=== PATIENT | male | born 1970 | race Caucasian/White ===

== ENCOUNTER 2025-11-14 13:19 | Inpatient (IN) | payer MEDICAID ==
[~2025-11-14] VITALS: Ht 172.7 cm; Wt 71.2 kg
[~2025-11-14 13:19] MED LIST: ENOX60DI SQ; FERR325T27 PO; FURO20TA4 PO
[2025-11-14 15:00] LABS: PLATELET COUNT (AUTO) 88 K/uL (150-450); RED BLOOD CELL COUNT(AUTO) 4.10 MIL/uL (4.5-6.0); RED CELL DISTRIBUTION WIDTH 13.0 % (11.5-15.0); WHITE BLOOD COUNT (AUTO) 7.5 K/uL (4.3-11.0)
[2025-11-14 15:10] LABS: CALCIUM, SERUM 8.3 mg/dL (8.5-10.1); CREATININE 1.6 mg/dL (0.6-1.3); SODIUM SERUM 138 mmol/L (136-145); UREA NITROGEN, BLOOD 29 mg/dL (7-18)
[2025-11-14 15:27] LABS: ASPARTATE AMINOTRANSFERASE 21 U/L (15-37); TOTAL PROTEIN, SERUM 7.0 g/dL (6.4-8.2)
[2025-11-14 15:32] LABS: ALCOHOL, BLOOD < 3 mg/dL (0-10)
[2025-11-14] MEDS: IV NS 0.9% 1,000 ML BAG IV ONE (15:35)
[2025-11-14] MEDS ORDERED: LORAZEPAM INJ 2 MG/ML VIAL ONE (17:14)
[2025-11-14] MEDS: LORAZEPAM INJ 2 MG/ML VIAL IV ONE (17:23)
[2025-11-14 17:29] LABS: LYMPHOCYTES % (MANUAL) 10 % (16-48); MONOCYTES % (MANUAL) 3 % (0-11.0); NEUTROPHILS % (MANUAL) 87 (42-76); PLATELET ESTIMATE ADEQUATE
[2025-11-14] MEDS: LEVETIRACETAM SOL (5 ML) 100 MG/ML UDC PO SCH (17:30)
[2025-11-14] MEDS ORDERED: LEVETIRACETAM SOL (5 ML) 100 MG/ML UDC ONE (17:36)
[2025-11-14] MEDS ORDERED: ONDANSETRON HCL/PF 4 MG/2 ML VIAL ONE (17:42)
[2025-11-14] MEDS: ONDANSETRON HCL/PF - ER 4 MG/2 ML VIAL IV ONE (17:54)
[2025-11-14] MEDS: LEVETIRACETAM (500MG) 1,000 MG in IV NS 0.9% 90 ML IV SCH (17:54)
[2025-11-14 20:00] VITALS: BP 147/88; TEMP 97.7; O2SAT 98
[2025-11-14] MEDS ORDERED: hydrALAZINE HCL IV 20 MG VIAL IV PRN (20:30)
[2025-11-14] MEDS ORDERED: LORAZEPAM INJ 2 MG/ML VIAL IV PRN (20:30)
[2025-11-14] MEDS ORDERED: ONDANSETRON HCL/PF 4 MG/2 ML VIAL IVP PRN (20:30)
[2025-11-14] MEDS ORDERED: MORPHINE SULFATE INJ 2 MG/ML DISP.SYRIN IV PRN (20:30)
[2025-11-14] MEDS: IV NS 0.9% 1,000 ML IV SCH (20:51)
[2025-11-14] MEDS ORDERED: HEPARIN SODIUM, PORCINE 5000 UNITS/1 ML VIAL SQ SCH (21:00)
[2025-11-14] MEDS ORDERED: Calcium Gluconate 0.465 MEQ/ML VIAL IV ONE (23:21)
[2025-11-14] MEDS: Calcium Gluconate 1GM/10ML 9.3 MEQ in IV NS 0.9% 100 ML IV ONE (23:31)
[2025-11-15] VITALS: BP 133/91; TEMP 97.8; O2SAT 98
[2025-11-15 07:11] LABS: PLATELET COUNT (AUTO) 91 K/uL (150-450); RED BLOOD CELL COUNT(AUTO) 4.12 MIL/uL (4.5-6.0); RED CELL DISTRIBUTION WIDTH 12.8 % (11.5-15.0); WHITE BLOOD COUNT (AUTO) 6.9 K/uL (4.3-11.0)
[2025-11-15 07:24] LABS: ASPARTATE AMINOTRANSFERASE 23.0 U/L (15-37); CALCIUM, SERUM 8.4 mg/dL (8.5-10.1); CREATININE 1.3 mg/dL (0.6-1.3); PHOSPHORUS 3.1 mg/dL (2.5-4.9); SODIUM SERUM 137.0 mmol/L (136-145); TOTAL PROTEIN, SERUM 6.6 g/dL (6.4-8.2); UREA NITROGEN, BLOOD 20.0 mg/dL (7-18)
[2025-11-15 08:15] LABS: BASOPHILS % (MANUAL) 0 % (0.0-2.0); EOSINOPHILS % (MANUAL) 0 % (0-4); LYMPHOCYTES % (MANUAL) 12 % (16-48); MONOCYTES % (MANUAL) 7 % (0-11.0); NEUTROPHILS % (MANUAL) 81 (42-76); PLATELET ESTIMATE DECREASED
[2025-11-15] MEDS: LEVETIRACETAM (250 MG) 250 MG TABLET PO SCH (08:48)
[2025-11-15] MEDS: ACETAMINOPHEN 325 MG TABLET PO PRN (12:50)
[2025-11-15] MEDS: IV NS 0.9% 1,000 ML IV PRN (14:51)
[2025-11-15 17:07] LABS: APPEARANCE,URINE CLEAR (CLEAR); BLOOD, URINE TRACE-INTA Ery/uL (NEGATIVE); LEUKOCYTE ESTERASE ,URINE NEGATIVE (NEGATIVE); NITRITE, URINE NEGATIVE (NEGATIVE); UGLUCOSE NEGATIVE (NEGATIVE)
[2025-11-15 17:09] LABS: ADD URINE CULTURE NO; SQUAMOUS EPITHELIAL CELL,UR None Seen /HPF (None Seen)
[2025-11-15 17:32] LABS: EOSINOPHIL,URINE None Seen
[2025-11-15 17:50] LABS: AMPHETAMINE, URINE NEGATIVE (NEGATIVE); BARBITURATE, URINE NEGATIVE (NEGATIVE); BENZODIAZEPINE, URINE NEGATIVE (NEGATIVE); COCCAINE, URINE NEGATIVE (NEGATIVE); OPIATE, URINE NEGATIVE (NEGATIVE)
[2025-11-15 17:52] LABS: CANNABINOID, URINE POSITIVE (NEGATIVE)
[2025-11-15 18:04] LABS: CREATININE, URINE 47.7 MG/DL (30.0-125.0); URINE SODIUM, RANDOM 151.0 mmol/l (40-220); URINE TOTAL PROTEIN 10.8 mg/dL (0-11.9)
[2025-11-16 04:00] VITALS: BP 129/78; TEMP 98.2; O2SAT 96
[2025-11-16 07:19] LABS: PLATELET COUNT (AUTO) 99 K/uL (150-450); RED BLOOD CELL COUNT(AUTO) 4.11 MIL/uL (4.5-6.0); RED CELL DISTRIBUTION WIDTH 12.7 % (11.5-15.0); WHITE BLOOD COUNT (AUTO) 6.6 K/uL (4.3-11.0)
[2025-11-16 07:51] LABS: ASPARTATE AMINOTRANSFERASE 22.0 U/L (15-37); CALCIUM, SERUM 8.2 mg/dL (8.5-10.1); CREATININE 1.3 mg/dL (0.6-1.3); PHOSPHORUS 2.9 mg/dL (2.5-4.9); SODIUM SERUM 141.0 mmol/L (136-145); TOTAL PROTEIN, SERUM 6.6 g/dL (6.4-8.2); UREA NITROGEN, BLOOD 21.0 mg/dL (7-18)
[2025-11-16 08:38] LABS: CREATINE KINASE, TOTAL 120.0 U/L (39-308)
[2025-11-16] MEDS ORDERED: LEVE500T9 PO (10:55)
[2025-11-16 12:00] VITALS: BP 126/77; TEMP 97.9; O2SAT 97
[2025-11-16 12:13] LABS: EOSINOPHILS % (MANUAL) 1 % (0-4); LYMPHOCYTES % (MANUAL) 11 % (16-48); MONOCYTES % (MANUAL) 6 % (0-11.0); NEUTROPHILS % (MANUAL) 82 (42-76); PLATELET ESTIMATE DECREASED
[2025-11-17 06:07] LABS: PTH, INTACT 19 pg/mL (15-65)
[2025-11-17 11:09] LABS: *SPE A/G RATIO 1.0 (0.7-1.7); *SPE ALBUMIN 3.1 g/dL (2.9-4.4); *SPE ALPHA-1-GLOBULIN 0.3 g/dL (0.0-0.4); *SPE ALPHA-2-GLOBULIN 0.7 g/dL (0.4-1.0); *SPE BETA GLOBULIN 0.9 g/dL (0.7-1.3); *SPE GLOBULIN, TOTAL 3.0 g/dL (2.2-3.9); *SPE M-SPIKE Not Observed g/dL (Not Observed); *SPE PROTEIN TOTAL 6.1 g/dL (6.0-8.5); *SPEGAMMA GLOBULIN 1.2 g/dL (0.4-1.8)
== END 2025-11-16 14:33 | disposition home or self-care (01) | DRG 53 ==
LOC: ER 13:19 → TELE1 19:28 → MEDSG1 11-15 10:59
PROVIDERS: ADMIT Internal Medicine; ATTEND Student in an Organized Health Care Education/Training Program
DX: R56.9 Unspecified convulsions (principal); N17.0 Acute kidney failure with tubular necrosis; G92.8 Other toxic encephalopathy; E44.1 Mild protein-calorie malnutrition; E88.09 Other disorders of plasma-protein metabolism, not elsewhere classified; E83.51 Hypocalcemia; D50.9 Iron deficiency anemia, unspecified; F10.11 Alcohol abuse, in remission; D69.59 Other secondary thrombocytopenia; J45.909 Unspecified asthma, uncomplicated; K70.30 Alcoholic cirrhosis of liver without ascites; N18.9 Chronic kidney disease, unspecified; G93.89 Other specified disorders of brain; K46.9 Unspecified abdominal hernia without obstruction or gangrene; Z88.1 Allergy status to other antibiotic agents; E86.9 Volume depletion, unspecified; Z84.19 Family history of other disorders of kidney and ureter; Z87.828 Personal history of other (healed) physical injury and trauma
CPT/HCPCS: 36415; 70450-TC; 71045-TC; 76770-TC; 80048-TC; 80053-TC; 80076-TC; 81001; 82550-TC; 82570-TC; 83735-TC; 83970; 84100-TC; 84155; 84165; 84300-TC; 84443-TC; 84484-TC; 85025-TC; 85027-TC; A4223; G0378; G0480; J0612; J1953; J2060; J2405; J7030